=== PATIENT | female | born 1930 | race Caucasian/White ===

== ENCOUNTER 2017-07-28 17:15 | Observation (INO) | payer OTHER ==
[~2017-07-28] VITALS: Ht 162.6 cm; Wt 72.6 kg
[~2017-07-28 17:15] MED LIST: ALPR-411 PO; FLUT0.0529 PO; LANS30CA12 PO; LEVO75TA PO; ZOLP5TAB PO
[2017-07-28] MEDS ORDERED: METOPROLOL TARTRATE 1 MG/ML VIAL IV STA (18:46)
--- NOTE | 2017-07-28 19:32 | DIAGNOSTIC IMAGING REPORT ---
CHEST ONE VIEW PORTABLE HISTORY: 87 years-old Female Evaluate Fever/Sepsis acute fever with sepsis COMPARISON: None available TECHNIQUE: Portable AP view of the chest FINDINGS: Cardiomediastinal and hilar silhouettes are within normal limits. Mild biapical pleural-parenchymal scarring without pneumothorax, pleural effusion, focal airspace consolidation or overt pulmonary edema. Degenerative changes noted within the shoulders and spine. Bones appear mildly demineralized. IMPRESSION: No acute process. The above report was generated using voice recognition software. It may contain grammatical, syntax or spelling errors. Electronically signed by: Flip Ibrahim M.D. 07/28/2017 7:30 PM Dictated Date/Time: 07/28/2017 7:30 PM
[2017-07-28] MEDS ORDERED: ALPPOPS5 OPR (19:36)
[2017-07-28] MEDS ORDERED: CHOL100027 PO (19:36)
[2017-07-28] MEDS ORDERED: MULT1CAP PO (19:36)
[2017-07-28] MEDS ORDERED: TRMCR130WC TOP (19:36)
[2017-07-28] MEDS ORDERED: LATA0.5S OPR (19:36)
[2017-07-28] MEDS ORDERED: BIOT1CAP8 PO (19:36)
[2017-07-28] MEDS ORDERED: FLUT0.15 NAE (19:36)
[2017-07-28] MEDS ORDERED: DOCU-94 PO (19:36)
[2017-07-28 19:55] LABS: BASO % 0.4 %; BASO ABS # 0.03 K/uL (0-0.2); EOS % 1.4 %; EOS ABS # 0.11 K/uL (0-0.5); HEMOGLOBIN 13.4 g/dL (12.0-16.0); IG# 0.02 K/uL (0.00-0.02); LYMPH % 27.2 %; MEAN CELL VOLUME 92.8 fL (80-100); MEAN CORPUSCULAR HEMOGLOBIN 30.3 pg (25-34); MEAN CORPUSCULAR HGB CONC 32.7 g/dl (32-36); MEAN PLATELET VOLUME 8.6 fL (7.4-10.4); MONO % 7.1 %; MONO ABS # 0.55 K/uL (0.11-0.59); NEUT % 63.6 %; PLATELET COUNT 218 K/uL (130-400); RED CELL DISTRIBUTION WIDTH CV 14.1 % (11.5-14.5); RED CELL DISTRIBUTION WIDTH SD 47.9 fL (36.4-46.3); WHITE BLOOD COUNT 7.71 K/uL (4.8-10.8)
[2017-07-28 20:05] LABS: PTT PATIENT 25.4 SECONDS (21.0-31.0)
[2017-07-28 20:13] LABS: ALBUMIN 3.4 gm/dl (3.4-5.0); ALT/SGPT 25 U/L (12-78); AST/SGOT 13 U/L (15-37); BLOOD UREA NITROGEN 23 mg/dl (7-18); CALCIUM 8.9 mg/dl (8.5-10.1); CARBON DIOXIDE 26 mmol/L (21-32); CREATININE 1.13 mg/dl (0.60-1.20); GLUCOSE 95 mg/dl (70-99); LIPASE 265 U/L (73-393); POTASSIUM 3.7 mmol/L (3.5-5.1); SODIUM 141 mmol/L (136-145)
[2017-07-28] MEDS ORDERED: LABETALOL HCL IV 5 MG/ML 20ML IV STA (20:15)
[2017-07-28 20:23] LABS: ALKALINE PHOSPHATASE 80 U/L (45-117); CKMB 1.7 ng/ml (0.5-3.6); TOTAL PROTEIN 7.1 gm/dl (6.4-8.2)
--- NOTE | 2017-07-28 21:44 | EMERGENCY ROOM VISIT NOTE ---
History Report prepared by Lucas: Maddi Sales Under the Supervision of: Dr. Landon Rodriguez D.O. First contact with patient: 18:42 Chief Complaint: REFERRED BY DOCTOR Stated Complaint: SOB, HYPERTENSIVE History of Present Illness The patient is an 87 year old female who presents to the Emergency Room with complaints of persistent SOB starting today. She was sent to the ED by her PCP. The patient has a history of SOB with exertion, but today started feeling SOB at rest. She also notes that her blood pressure has been high today. Her blood pressure has been spiking with exertion for the past year. Her blood pressure goes as high as 225/107 after going up the steps. Her blood pressure usually comes back down with rest. Today it is not coming back down. The patient is not on any medications for hypertension because her pressure is too labile. She has been hearing her heart beat in her ears. She denies any new swelling or pain in her legs. 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 Source of History: patient Onset: today Position: other (global) Quality: other (SOB) Timing: other (persistent) Modifying Factors (Worsening): exertion Note: Pt reports high blood pressure. Pt denies leg pain or swelling. Review of Systems See HPI for pertinent positives & negatives. A total of 10 systems reviewed and were otherwise negative. Past Medical & Surgical Medical Problems: (1) HTN (hypertension) Family History Noncontributory secondary to age. Social History Smoking Status: Never Smoker Marital Status: Housing Status: lives with family Occupation Status: retired Current/Historical Medications Scheduled Biotin (Biotin), 1 MG PO DAILY Brimonidine Tartrate (Alphagan P), 1 DROPS OPR HS Cholecalciferol (Vitamin D 1000 Unit), 1,000 INTER.UNIT PO DAILY Latanoprost (Xalatan 0.005% Oph Rosenda), 1 DROPS OPR HS Levothyroxine Sodium (Synthroid), 75 MCG PO DAILY Multiple Vitamins W/ Minerals (Preservision Areds 2 + Mu), 1 CAP PO DAILY Scheduled PRN Alprazolam (Xanax), 0.25 MG PO HS PRN for ANXEITY Docusate Sodium (Colace), 1 CAP PO BID PRN for Constipation Fluticasone Propionate (Nasal) (Flonase Allergy Relief), 2 SPRAYS LIOR DAILY PRN for Nasal Congestion Triamcinolone Acet (Aristocort 0.1%), 1 APPLN TOP BID PRN for 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) Nitroglycerin (Verified Allergy, Severe, "PASS OUT", 10/06/13) Pneumococcal Vaccines (Verified Allergy, Unknown, UNKNOWN, 07/28/17) Sulfa Antibiotics (Verified Allergy, Unknown, UNKN, 10/06/13) Physical Exam Vital Signs Date Time Temp Pulse Resp B/P (MAP) Pulse Ox O2 Delivery O2 Flow Rate FiO2 07/28/17 21:23 96 16 202/134 98 Room Air 07/28/17 20:33 88 16 185/107 95 Room Air 07/28/17 20:00 74 16 216/121 98 Room Air 07/28/17 19:30 75 16 223/127 96 Room Air 07/28/17 19:29 75 223/127 07/28/17 19:16 97 07/28/17 18:58 98 Room Air 07/28/17 18:38 100 16 245/104 98 Room Air 07/28/17 17:31 36.9 118 20 221/101 97 Room Air Physical Exam CONSTITUTIONAL/VITAL SIGNS: Reviewed / noted above. GENERAL: Non-toxic in appearance. INTEGUMENTARY: Warm, dry, and Tiger. HEAD: Normocephalic. EYES: without scleral icterus or trauma. ENT/OROPHARYNX: clear and moist. LYMPHADENOPATHY/NECK: Is supple without lymphadenopathy or meningismus. RESPIRATORY: Lungs clear and equal. CARDIOVASCULAR: Tachycardic rate and regular rhythm. GI/ABDOMEN: Soft and nontender. No organomegaly or pulsatile mass. No rebound or guarding. Normal bowel sounds. EXTREMITIES: Warm and well perfused. BACK: No CVA tenderness. NEUROLOGICAL: Intact without focal deficits. PSYCHIATRIC: normal affect. MUSCULOSKELETAL: Normally developed with good muscle tone. Medical Decision & Procedures ER Provider Diagnostic Interpretation: X ray results and stated below per my interpretation and radiology interpretation. CHEST ONE VIEW PORTABLE HISTORY: 87 years-old Female Evaluate Fever/Sepsis acute fever with sepsis COMPARISON: None available TECHNIQUE: Portable AP view of the chest FINDINGS: Cardiomediastinal and hilar silhouettes are within normal limits. Mild biapical pleural-parenchymal scarring without pneumothorax, pleural effusion, focal airspace consolidation or overt pulmonary edema. Degenerative changes noted within the shoulders and spine. Bones appear mildly demineralized. IMPRESSION: No acute process. The above report was generated using voice recognition software. It may contain grammatical, syntax or spelling errors. Electronically signed by: Flip Ibrahim M.D. 07/28/2017 7:30 PM Dictated Date/Time: 07/28/2017 7:30 PM Laboratory Results 07/28/17 19:36 Red Blood Count 4.42, Mean Corpuscular Volume 92.8, Mean Corpuscular Hemoglobin 30.3, Mean Corpuscular Hemoglobin Concent 32.7, Mean Platelet Volume 8.6, Neutrophils (%) (Auto) 63.6, Lymphocytes (%) (Auto) 27.2, Monocytes (%) (Auto) 7.1, Eosinophils (%) (Auto) 1.4, Basophils (%) (Auto) 0.4, Neutrophils # (Auto) 4.90, Lymphocytes # (Auto) 2.10, Monocytes # (Auto) 0.55, Eosinophils # (Auto) 0.11, Basophils # (Auto) 0.03 07/28/17 19:36 Test 07/28/17 19:36 07/28/17 19:49 White Blood Count 7.71 K/uL (4.8-10.8) Red Blood Count 4.42 M/uL (4.2-5.4) Hemoglobin 13.4 g/dL (12.0-16.0) Hematocrit 41.0 % (37-47) Mean Corpuscular Volume 92.8 fL (80-100) Mean Corpuscular Hemoglobin 30.3 pg (25-34) Mean Corpuscular Hemoglobin Concent 32.7 g/dl (32-36) Platelet Count 218 K/uL (130-400) Mean Platelet Volume 8.6 fL (7.4-10.4) Neutrophils (%) (Auto) 63.6 % Lymphocytes (%) (Auto) 27.2 % Monocytes (%) (Auto) 7.1 % Eosinophils (%) (Auto) 1.4 % Basophils (%) (Auto) 0.4 % Neutrophils # (Auto) 4.90 K/uL (1.4-6.5) Lymphocytes # (Auto) 2.10 K/uL (1.2-3.4) Monocytes # (Auto) 0.55 K/uL (0.11-0.59) Eosinophils # (Auto) 0.11 K/uL (0-0.5) Basophils # (Auto) 0.03 K/uL (0-0.2) RDW Standard Deviation 47.9 fL (36.4-46.3) RDW Coefficient of Variation 14.1 % (11.5-14.5) Immature Granulocyte % (Auto) 0.3 % Immature Granulocyte # (Auto) 0.02 K/uL (0.00-0.02) Prothrombin Time 10.9 SECONDS (9.0-12.0) Prothromb Time International Ratio 1.0 (0.9-1.1) Activated Partial Thromboplast Time 25.4 SECONDS (21.0-31.0) Partial Thromboplastin Ratio 1.0 Anion Gap 6.0 mmol/L (3-11) Est Creatinine Clear Calc Drug Dose 33.9 ml/min Estimated GFR () 50.3 Estimated GFR (Non- 43.4 BUN/Creatinine Ratio 20.2 (10-20) Calcium Level 8.9 mg/dl (8.5-10.1) Total Bilirubin 0.3 mg/dl (0.2-1) Direct Bilirubin 0.1 mg/dl (0-0.2) Aspartate Amino Transf (AST/SGOT) 13 U/L (15-37) Alanine Aminotransferase (ALT/SGPT) 25 U/L (12-78) Alkaline Phosphatase 80 U/L (45-117) Total Creatine Kinase 99 U/L (26-192) Creatine Kinase MB 1.7 ng/ml (0.5-3.6) Creatine Kinase MB Ratio 1.7 (0-3.0) Troponin I < 0.015 ng/ml (0-0.045) Total Protein 7.1 gm/dl (6.4-8.2) Albumin 3.4 gm/dl (3.4-5.0) Lipase 265 U/L (73-393) Thyroid Stimulating Hormone (TSH) 2.520 uIu/ml (0.300-4.500) Urine Color YELLOW Urine Appearance CLEAR (CLEAR) Urine pH 6.5 (4.5-7.5) Urine Specific [place] 1.008 (1.000-1.030) Urine Protein NEG (NEG) Urine Glucose (UA) NEG (NEG) Urine Ketones NEG (NEG) Urine Occult Blood NEG (NEG) Urine Nitrite NEG (NEG) Urine Bilirubin NEG (NEG) Urine Urobilinogen NEG (NEG) Urine Leukocyte Esterase NEG (NEG) Laboratory results as stated above per my review. Medications Administered Medications (Trade) Dose Ordered Sig/Elisa Route Start Time Stop Time Status Last Admin Dose Admin Metoprolol Tartrate (Lopressor Iv) 5 mg NOW STAT IV 07/28/17 18:46 07/28/17 18:48 DC 07/28/17 19:29 5 MG Labetalol HCl (Normodyne IV) 15 mg NOW STAT IV 07/28/17 20:15 07/28/17 20:17 DC 07/28/17 20:30 15 MG ECG Per My Interpretation Indication: SOB/dyspnea Rate (beats per minute): 103 Rhythm: sinus tachycardia Findings: no ectopy, other (no ST elevation) ED Course 1843: Previous medical records were reviewed. The patient was evaluated in room B6. A complete history and physical examination was performed. 1845: Lopressor Iv 5 mg IV. 2014: Labetalol HCl 15 mg IV. 2031: On reevaluation, the patient is stable. I discussed the results and findings with her. She verbalized agreement of the treatment plan. The patient will be evaluated for further management and care. 2033: I discussed the patient's case with Brianda Parikh PA-C [facility] hospitalist. The patient will be evaluated for further treatment and disposition. Medical Decision the differential was considered includes acute myocardial infarction, acute coronary syndrome, myocarditis, pericarditis, pericardial effusions /tamponad, esophageal perforation, thoracic aortic dissection, pulmonary embolism, pneumonia, pneumothorax, pancreatitis, shingles, acute cholecystitis, perforated abdominal viscus. This is an 87-year-old female who presents to the ED with a chief complaint of shortness of breath and hypertension. The patient reports a history of labile hypertension. She states that her typical blood pressure for her when walking up the steps or exerting herself is 225/107. She states that this is been going on for about a year. Her doctor from [place] has tried numerous blood pressure medications for her but her blood pressure typically "bottoms out". The patient reports shortness of breath with minimal exertion recently as well as shortness of breath at rest. The patient reports taking a cold medication for the past 2-1/2 weeks as well. Her initial blood pressure was 245/145. Her exam reveals a tachycardic rate at the rate of about 115. An EKG shows a sinus tach without acute ischemic changes or ectopy. Patient's exam was otherwise unremarkable. 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 The patient takes thyroid medication. Patient's blood work including CBC, PRP, troponin and TSH were within normal limits. Urine did not show infection. Chest x-ray was negative for acute disease and an EKG showed a sinus tachycardia. The patient was treated with IV Lopressor initially and then IV labetalol. Because of the patient's exertional dyspnea and extreme hypertension, she will be seen by the hospitalist for further inpatient evaluation and care. Medication Reconcilliation Current Medication List: was personally reviewed by me Blood Pressure Screening Patient's blood pressure: Elevated blood pressure Blood pressure disposition: Referred to PCP Consults Time Called: 2030 Consulting Physician: Brianda Parikh PA-C [facility] hospitalist Returned Call: [phone] Discussed the patient's case. The patient will be evaluated for further treatment and disposition. Impression Primary Impression: Hypertensive urgency Scribe Attestation The scribe's documentation has been prepared under my direction and personally reviewed by me in its entirety. I confirm that the note above accurately reflects all work, treatment, procedures, and medical decision making performed by me. Departure Information Dispostion Being Evaluated By Hospitalist Referrals Shyam Francois MD (PCP) Patient Instructions My [facility]
[2017-07-28] MEDS ORDERED: ACETAMINOPHEN 325 MG TAB PO PRN (21:45)
[2017-07-28] MEDS ORDERED: MAGNESIUM HYDROXIDE SUSP 30 ML UDC PO PRN (21:45)
[2017-07-28] MEDS ORDERED: HydrALAZINE HCL 20 MG/ML VIAL IV. STA (21:51)
[2017-07-28] MEDS ORDERED: HydrALAZINE HCL 20 MG/ML VIAL IV. PRN (22:00)
[2017-07-28] MEDS ORDERED: ALPR0.25 PO (22:04)
[2017-07-28] MEDS ORDERED: MAGN200T3 PO (22:04)
[2017-07-28] MEDS ORDERED: BRIM0.15 OPR (22:04)
[2017-07-28] MEDS ORDERED: DOCUSATE SODIUM 100 MG CAP PO PRN (22:15)
[2017-07-28] MEDS ORDERED: IV FLUIDS COMPLETED PRN (22:15)
[2017-07-28] MEDS ORDERED: FLUTICASONE PROPIONATE NA SPR 16 GM BTL NAE PRN (22:15)
[2017-07-28 22:55] VITALS: BP_SYST 199; BP_SYST 209; BP_DIAS 101; BP_DIAS 103; PULSE 105; TEMP 36.5; O2SAT 96; Ht 162.6 cm; Wt 72.6 kg
--- NOTE | 2017-07-28 23:04 | History and Physical ---
History & Physical Date & Time of Service: Jul 28, 2017 at 22:06 Chief Complaint: Sob, Hypertensive Primary Care Physician: Shyam Francois MD History of Present Illness Source: patient, family, clinic records, hospital records Patient is a 87-year-old female with PMH hypertension, hypothyroidism, CKD 3, history of Guillain Ann in 2007, hx TIA in 1998 presented to ER with complaint of hypertension and shortness of breath. History PE after prolonged immobilization from Guillain [place] and history of residual lower extremity weakness and intermittent tremors of arms and legs. Patient reports a history of labile hypertension with history of hypotension & orthostatic hypotension on BP meds in the past. Reports has not been on BP meds for at least 10 years. Patient reports for >1 year has been experiencing exertional shortness of breath after climbing one flight of stairs. Patient states will become short of breath and had the sensation of a lump to the midsternal region. She states she sits and relaxes and symptoms will resolve. She has been taking her blood pressure and the symptoms occurred and reports blood pressure systolic 220s then trends down to 170s down to 140s. Patient reports past week with increased shortness of breath with exertion, now short of breath with walking to the bathroom. Currently patient denies any shortness of breath or chest discomfort. Hx intermittent CP in past, denied further workup. Patient intolerant to nitroglycerin with history of syncope in the past from nitro. Patient states for the past year has been using 5 pillows secondary to orthopnea. Patient reports intermittent or chronic nasal congestion. Several weeks ago was experiencing URI symptoms, seen by PCP on 07/09/17 diagnosed with sinusitis started on cefdinir and prednisone 10 mg 5 days. Patient reports has been taking taking Mucinex DM, last dose yesterday. Cough has resolved, still with some nasal congestion to right nostril. using saline nasal spray once a day and Flonase daily. Patient reports history of lightheadedness and seeing silver spots in vision after standing x years. Denies syncope. Patient reports was told in the past had mild emphysema, has never been on any inhalers for this. Reports history of congestive heart failure during hospitalization for Guillain [place] thought to be secondary from too much IV fluids. Patient denies known CAD. Reports history of cardiac cath approximately 30 years ago which was normal. Reports history of stress test approximately 20 years ago which she reports is normal. History of echo 08/2011, EF: 55-59%, mild mitral regurgitation, moderate tricuspid regurgitation, moderate aortic sclerosis. Patient states has denied stress test in the recent past. Patient reports history of feeling anxious and trouble sleeping at night. Has been taking Xanax at bedtime X1 year. Patient states over the past week or so feeling anxious throughout the day. Denies depression symptoms. Reports history of intermittent swelling of ankles, left greater than right. Patient states has not noticed extremity edema for the past month. Denies any HAGEN, denies falls or head injury. In the ER pulse initially 118 down to 74. BP: 221/101 down to 189/105. Patient was given Lopressor 5 mg IV, labetalol 15 mg IV. Patient denies any chest pain while in ER. Initial troponin negative. Pt daughter: Yuko, phone # [phone] Pt grandson: Michel, phone # [phone] Past Medical/Surgical History Medical Problems: (1) History of transient ischemic attack (TIA) Permanent Comment: 1998 Status: Chronic (2) HTN (hypertension) Status: Chronic (3) Hx of Guillain-[place] syndrome Permanent Comment: 2007- after norovirus, hospitalized x couple weeks, hx trach , peg tube. residual LE weakness Status: Resolved (4) Hypothyroidism Status: Chronic (5) Radius and ulna distal fracture Status: Resolved (6) Radius and ulna distal fracture Status: Resolved (7) Wrist pain, left Status: Resolved Surgical Problems: (1) Hx of cataract removal with insertion of prosthetic lens Status: Resolved (2) Hx of hysterectomy Status: Resolved (3) Hx of shoulder surgery Permanent Comment: 1957 - staph infection L shoulder Status: Resolved (4) Hx of umbilical hernia repair Permanent Comment: 2007 - incarcerated hernia Status: Resolved Family History Hypothyroidism Stroke Social History Smoking Status: Never Smoker Smokeless Tobacco Use: No Alcohol Use: none Drug Use: none Marital Status: Housing status: lives with family Occupational Status: retired 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) Nitroglycerin (Verified Allergy, Severe, "PASS OUT", 10/06/13) Pneumococcal Vaccines (Verified Allergy, Unknown, UNKNOWN, 07/28/17) Sulfa Antibiotics (Verified Allergy, Unknown, UNKN, 10/06/13) Home Medications Scheduled Biotin (Biotin), 1 MG PO DAILY Brimonidine Tartrate Oph (Alphagan P Oph), 1 DROP OPR BID Cholecalciferol (Vitamin D 1000 Unit), 1,000 INTER.UNIT PO DAILY Latanoprost (Xalatan 0.005% Oph Rosenda), 1 DROPS OPR HS Levothyroxine Sodium (Synthroid), 75 MCG PO DAILY Magnesium (Magnesium), 2 TAB PO DAILY Multiple Vitamins W/ Minerals (Preservision Areds 2 + Mu), 1 CAP PO DAILY Scheduled PRN Alprazolam (Xanax), 1 TAB PO HS PRN for Anxiety/Insomnia Docusate Sodium (Colace), 1 CAP PO BID PRN for Constipation Fluticasone Propionate (Nasal) (Flonase Allergy Relief), 2 SPRAYS LIOR DAILY PRN for Nasal Congestion Review of Systems Constitutional: No fever, No chills, No sweats, No weight loss Eyes: No worsening of vision, No eye pain, No redness, No discharge, No diplopia ENT: No unusual epistaxis, No sore throat Respiratory: No wheezing, No dyspnea at rest, No hemoptysis Cardiovascular: + problem reported (see HPI), No palpitations Abdomen: No pain, No nausea, No vomiting, No diarrhea, No constipation, No GI bleeding Musculoskeletal: No joint pain, No muscle pain, No calf pain Genitourinary - Female: + urinary frequency, No dysuria, No urinary urgency, No urinary incontinence, No urinary retention, No hematuria Neurologic: No memory loss, No paralysis, No numbness/tingling Psychiatric: + anxiety (see HPI) Endocrine: No excessive thirst, No excessive urination Hematologic / Lymphatic: No abnormal bleeding/bruising, No swollen lymph nodes , No night sweats Integumentary: No rash, No itch Physical Exam Vital Signs Date Time Temp Pulse Resp B/P (MAP) Pulse Ox O2 Delivery O2 Flow Rate FiO2 07/28/17 21:23 96 16 202/134 98 Room Air 07/28/17 20:33 88 16 185/107 95 Room Air 07/28/17 20:00 74 16 216/121 98 Room Air 07/28/17 19:30 75 16 223/127 96 Room Air 07/28/17 19:29 75 223/127 07/28/17 19:16 97 07/28/17 18:58 98 Room Air 07/28/17 18:38 100 16 245/104 98 Room Air 07/28/17 17:31 36.9 118 20 221/101 97 Room Air General Appearance: WD/WN, no apparent distress Head: normocephalic, atraumatic Eyes: normal inspection, PERRL, EOMI, sclerae normal ENT: hearing grossly normal, pharynx normal, + pertinent finding (mucous membranes moist) Neck: supple, no JVD, trachea midline Respiratory/Chest: chest non-tender, lungs clear, normal breath sounds, no respiratory distress Cardiovascular: regular rate, rhythm, no murmur, normal peripheral pulses Abdomen/GI: normal bowel sounds, non tender, soft Back: no CVA tenderness Extremities/Musculoskelatal: no calf tenderness, normal capillary refill, non- tender, + pertinent finding (strength 2-3/5 bilateral lower extremities. left ankle slight non-pitting edema(pt reports chronic), no erythema.) Neurologic/Psych: alert, normal mood/affect, oriented x 3 Skin: normal color, warm/dry Diagnostics Laboratory Results Results Past 24 Hours Test 07/28/17 19:36 07/28/17 19:49 Range/Units White Blood Count 7.71 4.8-10.8 K/uL Red Blood Count 4.42 4.2-5.4 M/uL Hemoglobin 13.4 12.0-16.0 g/dL Hematocrit 41.0 37-47 % Mean Corpuscular Volume 92.8 80-100 fL Mean Corpuscular Hemoglobin 30.3 25-34 pg Mean Corpuscular Hemoglobin Concent 32.7 32-36 g/dl Platelet Count 218 130-400 K/uL Mean Platelet Volume 8.6 7.4-10.4 fL Neutrophils (%) (Auto) 63.6 % Lymphocytes (%) (Auto) 27.2 % Monocytes (%) (Auto) 7.1 % Eosinophils (%) (Auto) 1.4 % Basophils (%) (Auto) 0.4 % Neutrophils # (Auto) 4.90 1.4-6.5 K/uL Lymphocytes # (Auto) 2.10 1.2-3.4 K/uL Monocytes # (Auto) 0.55 0.11-0.59 K/uL Eosinophils # (Auto) 0.11 0-0.5 K/uL Basophils # (Auto) 0.03 0-0.2 K/uL RDW Standard Deviation 47.9 36.4-46.3 fL RDW Coefficient of Variation 14.1 11.5-14.5 % Immature Granulocyte % (Auto) 0.3 % Immature Granulocyte # (Auto) 0.02 0.00-0.02 K/uL Prothrombin Time 10.9 9.0-12.0 SECONDS Prothromb Time International Ratio 1.0 0.9-1.1 Activated Partial Thromboplast Time 25.4 21.0-31.0 SECONDS Partial Thromboplastin Ratio 1.0 Sodium Level 141 136-145 mmol/L Potassium Level 3.7 3.5-5.1 mmol/L Chloride Level 109 98-107 mmol/L Carbon Dioxide Level 26 21-32 mmol/L Anion Gap 6.0 3-11 mmol/L Blood Urea Nitrogen 23 7-18 mg/dl Creatinine 1.13 0.60-1.20 mg/dl Est Creatinine Clear Calc Drug Dose 33.9 ml/min Estimated GFR () 50.3 Estimated GFR (Non- 43.4 BUN/Creatinine Ratio 20.2 10-20 Random Glucose 95 70-99 mg/dl Calcium Level 8.9 8.5-10.1 mg/dl Magnesium Level 2.4 1.8-2.4 mg/dl Total Bilirubin 0.3 0.2-1 mg/dl Direct Bilirubin 0.1 0-0.2 mg/dl Aspartate Amino Transf (AST/SGOT) 13 15-37 U/L Alanine Aminotransferase (ALT/SGPT) 25 12-78 U/L Alkaline Phosphatase 80 45-117 U/L Total Creatine Kinase 99 26-192 U/L Creatine Kinase MB 1.7 0.5-3.6 ng/ml Creatine Kinase MB Ratio 1.7 0-3.0 Troponin I < 0.015 0-0.045 ng/ml Total Protein 7.1 6.4-8.2 gm/dl Albumin 3.4 3.4-5.0 gm/dl Lipase 265 73-393 U/L Thyroid Stimulating Hormone (TSH) 2.520 0.300-4.500 uIu/ml Urine Color YELLOW Urine Appearance CLEAR CLEAR Urine pH 6.5 4.5-7.5 Urine Specific [place] 1.008 1.000-1.030 Urine Protein NEG NEG Urine Glucose (UA) NEG NEG Urine Ketones NEG NEG Urine Occult Blood NEG NEG Urine Nitrite NEG NEG Urine Bilirubin NEG NEG Urine Urobilinogen NEG NEG Urine Leukocyte Esterase NEG NEG Diagnostic Radiology CXR: IMPRESSION: No acute process. EKG EKG: sinus tachycardia, rate 103, QTc: 458 Impression Assessment and Plan HTN URGENCY Pt reports hx labile HTN. Hasn't been on BP meds for 10 years 2/2 hypotension. Pt noticing SBP 220's after flight of stairs with associated SOB and mid chest lump sensation. In ER BP 221/101 down to 189/105 after lopressor 5mg IV and labetalol 15mg IV. Denies HAGEN. -recent URI hx, hold on further decongestants/expectorants at this time, may continue flonase, saline nasal spray -hydralazine 10mg IV Q6H prn SBP>180 -start low dose lisinopril with pt's hx intolerance to BP meds in past -orthostatics with reported hx orthostatic hypotension -continue to monitor SOB/CHEST DISCOMFORT Pt reports hx SOB with climbing flight of stairs x >1 year with associated mid sternal chest "lump" sensation and noted elevated BP (systolic 220's), resolves with resting. Increased SOB past week with SOB with walking to bathroom. Reports hx orthopnea x 1 year using 5 pillows, denies worsening orthopnea. Hx intermittent LE edema. Initial troponin in ER negative. R/O ACS, CHF -Monitor Vitals -Repeat EKG in am -trend troponin -echo -Cardiology consult -lipid panel in am -magnesium lab added -ASA -Pt intolerant to Nitro ANXIETY Pt reports hx anxiety and insomnia HS, with increased anxiety past week. ?OTC cold medicines worsening anxiety -continue xanax HS prn -continue to monitor CKD III Cr: 1.1, baseline 0.9-1.0 -avoid nephrotoxic agents when possible -monitor renal functions HYPOTHYROIDISM TSH: 2.5 -continue levothyroxine DVT Prophylaxis -heparin SQ Disposition admit tele DNR/DNI as per discussion with pt Follows with Dr Francois for routine care Pt was seen with Dr Lake. See addendum ADDENDUM: I have seen and examined the patient and agree with the note above. Jaya, Resuscitation Status DNR/DNI VTE Prophylaxis Will order VTE Prophylaxis: Yes Additional Copies To Shyam Francois MD
[2017-07-28] MEDS: ALPRAZOLAM 0.25 MG TAB PO PRN (23:16)
[2017-07-28 23:59] VITALS: BP 108/68; PULSE 71
[2017-07-29] VITALS (7 sets, daily range): BP systolic 123–183; BP diastolic 69–83; PULSE 73–90; TEMP 36.6–36.9; O2SAT 92–99
[2017-07-29] MEDS ORDERED: HydrALAZINE HCL 20 MG/ML VIAL IV. PRN (00:45)
[2017-07-29] MEDS: LEVOTHYROXINE 75 MCG TAB PO SCH (05:34)
[2017-07-29 06:45] LABS: HEMATOCRIT 37.9 % (37-47); HEMOGLOBIN 12.4 g/dL (12.0-16.0); MEAN CELL VOLUME 91.1 fL (80-100); MEAN CORPUSCULAR HEMOGLOBIN 29.8 pg (25-34); MEAN CORPUSCULAR HGB CONC 32.7 g/dl (32-36); MEAN PLATELET VOLUME 8.3 fL (7.4-10.4); PLATELET COUNT 219 K/uL (130-400); RED CELL DISTRIBUTION WIDTH CV 14.3 % (11.5-14.5); RED CELL DISTRIBUTION WIDTH SD 47.5 fL (36.4-46.3); WHITE BLOOD COUNT 8.19 K/uL (4.8-10.8)
[2017-07-29 07:14] LABS: CALCIUM 8.8 mg/dl (8.5-10.1); CREATININE 1.13 mg/dl (0.60-1.20)
[2017-07-29] MEDS: BRIMONIDINE TARTRATE-P 0.15% 5 ML BTL OPR SCH ×2 (08:28→21:19)
[2017-07-29] MEDS: CEROVITE ADV FORMULA TAB PO SCH (08:29)
[2017-07-29] MEDS: ASPIRIN 81 MG ECTAB PO SCH (08:29)
[2017-07-29] MEDS: CHOLECALCIFEROL 1000 INTER.UNIT TAB PO SCH (08:29)
[2017-07-29] MEDS: MAGNESIUM OXIDE 400 MG TAB PO SCH (08:29)
[2017-07-29] MEDS: HEPARIN SOD 5000 UNIT/0.5 ML CARP SQ SCH ×2 (08:30→21:00)
[2017-07-29] MEDS ORDERED: LISINOPRIL 5 MG TAB PO SCH (09:00)
--- NOTE | 2017-07-29 11:41 | ECHOCARDIOGRAM REPORT ---
*NOTICE TO RECEIVING [facility] This information is strictly Confidential and protected under [place] law. [place] law prohibits you from making any further disclosure of this information unless further disclosure is expressly permitted by the written consent of the person to whom it pertains or is authorized by law. A general authorization for the release of medical or other information is not sufficient for this purpose. Hospital accepts no responsibility if the information is made available to any other person, INCLUDING THE PATIENT. Interpretation Summary * Name: CAITIE RAHMAN Study Date: 07/29/2017 05:35 AM BP: 145/76 mmHg * Patient Location: C.2T\S\S242\S\2 HR: 85 * : 1930 (M/d/yyyy) Gender: Female Height: 64 in * Age: 87 yrs Ethnicity: [place] Weight: 163 lb * Ordering Physician: Brianda Parikh * Referring Physician: Self, Referred * Performed By: Leslee Ferrari RDCS * * Reason For Study: CHEST PAIN * BSA: 1.8 m2 * The study was technically adequate. * There is no comparison study available. * -- Conclusions -- * Ejection Fraction = 60-65%. * The basal septum is thickened and angulated consistent with sigmoid septum. * Grade I diastolic dysfunction, (abnormal relaxation pattern). * Aortic valve sclerosis mild, without significant aortic valvular stenosis. * There is trace tricuspid regurgitation. * Doppler findings do not suggest pulmonary hypertension. * There is mild concentric left ventricular hypertrophy. Procedure Details * A complete two-dimensional transthoracic echocardiogram was performed (2D, M-mode, Doppler and color flow Doppler). Left Ventricle * The left ventricle is normal in size. * There is no thrombus. * There is mild concentric left ventricular hypertrophy. * The basal septum is thickened and angulated consistent with sigmoid septum. * Ejection Fraction = 60-65%. * Left ventricular systolic function is normal. * No regional wall motion abnormalities noted. Right Ventricle * The right ventricle is normal size. * The right ventricular systolic function is normal as assessed by tricuspid annular plane systolic excursion (TAPSE) (normal >1.5 cm). Atria * The left atrial size is normal. * Right atrial size is normal. * There is no evidence of atrial septal defect, but resolution does not allow assessment for a patent foramen ovale. Mitral Valve * The mitral valve is normal. * There is no mitral valve stenosis. * Significant mitral regurgitation is absent. Tricuspid Valve * The tricuspid valve is normal. * There is no tricuspid stenosis. * There is trace tricuspid regurgitation. * Doppler findings do not suggest pulmonary hypertension. Aortic Valve * The aortic valve is trileaflet. * Aortic valve sclerosis mild, without significant aortic valvular stenosis. * Aortic stenosis is absent. * There is no significant aortic regurgitation. Pulmonic Valve * The pulmonary valve is not well seen, but the Doppler examination is normal without significant regurgitation or stenosis. Great Vessels * The aortic root is normal size. Pericardium/Pleural * There is no pericardial effusion. Great Vessels * Normal inferior vena cava size and collapsability with sniff indicates a normal right atrial pressure of 3 mmHg Left Ventricular Diastolic Function * Grade I diastolic dysfunction, (abnormal relaxation pattern). MMode 2D Measurements and Calculations IVSd 1.3 cm IVSs 1.9 cm LVIDd 3.5 cm LVIDs 2.4 cm LVPWd 1.3 cm LVPWs 2.0 cm IVS/LVPW 0.99 FS 32.6 % EDV(Teich) 51.6 ml ESV(Teich) 19.6 ml EF(Teich) 62.0 % EDV(cubed) 43.7 ml ESV(cubed) 13.4 ml EF(cubed) 69.4 % % IVS thick 43.6 % % LVPW thick 50.4 % LV mass(C)d 154.3 grams LV mass(C)dI 86.1 grams/m\S\2 LV mass(C)s 186.2 grams LV mass(C)sI 103.8 grams/m\S\2 SV(Teich) 32.0 ml SI(Teich) 17.8 ml/m\S\2 SV(cubed) 30.3 ml SI(cubed) 16.9 ml/m\S\2 Ao root diam 3.2 cm Ao root area 7.9 cm\S\2 LA dimension 2.8 cm LA/Ao 0.88 LVAd ap4 25.0 cm\S\2 LVLd ap4 7.7 cm EDV(MOD-sp4) 62.3 ml EDV(sp4-el) 68.7 ml LVAs ap4 14.0 cm\S\2 LVLs ap4 6.1 cm ESV(MOD-sp4) 26.1 ml ESV(sp4-el) 27.1 ml EF(MOD-sp4) 58.1 % EF(sp4-el) 60.5 % LVAd ap2 17.4 cm\S\2 LVLd ap2 7.1 cm EDV(MOD-sp2) 34.5 ml EDV(sp2-el) 36.3 ml LVAs ap2 9.8 cm\S\2 LVLs ap2 6.2 cm ESV(MOD-sp2) 14.2 ml ESV(sp2-el) 13.2 ml EF(MOD-sp2) 58.7 % EF(sp2-el) 63.7 % LVLd %diff -8.81 % EDV(MOD-bp) 49.2 ml LVLs %diff 2.3 % ESV(MOD-bp) 18.3 ml EF(MOD-bp) 62.8 % SV(MOD-sp4) 36.2 ml SI(MOD-sp4) 20.2 ml/m\S\2 SV(MOD-sp2) 20.2 ml SI(MOD-sp2) 11.3 ml/m\S\2 SV(MOD-bp) 30.9 ml SI(MOD-bp) 17.2 ml/m\S\2 SV(sp4-el) 41.6 ml SI(sp4-el) 23.2 ml/m\S\2 SV(sp2-el) 23.1 ml SI(sp2-el) 12.9 ml/m\S\2 Doppler Measurements and Calculations MV E max alyssa 58.8 cm/sec MV A max alyssa 118.1 cm/sec MV E/A 0.50 MV dec time 0.16 sec Ao V2 max 145.5 cm/sec Ao max PG 8.5 mmHg Ao max PG (full) 4.1 mmHg LV V1 max PG 4.4 mmHg LV V1 max 104.6 cm/sec TR max alyssa 244.0 cm/sec
[2017-07-29] MEDS ORDERED: LISINOPRIL 5 MG TAB PO ONE (14:30)
--- NOTE | 2017-07-29 16:05 | Cardiology Consultation ---
Cardiology Consultation Date of Consultation: Jul 29, 2017 Requesting Physician: Ms. Liliane Voss Attending Content Editor: Dr. Mckee (Ana Machuca PA-C) History of Present Illness Patient is a 87 year old female With longstanding history of labile hypertension, not currently on medication therapy due to poor intolerance of blood pressure medications in the past secondary to hypotension. She does not recall what medications she has tried. she denies prior history of cardiovascular disease. She recalls having prior stress tests in the past many years ago which were normal. She had a cardiac catheterization approximately 40 years ago without intervention per her recollection. She was Previously diagnosed with "angina" and prescribed sublingual nitro for chronic chest pain. She does not take nitro on a regular basis due to hypotension. she recalls having angina episodes for many years which is unchanged. Recently patient reports worsening shortness of breath with minimal exertion. She also reports elevated blood pressure readings at home, ranging 180- 220 / 100-120. She notes intermittent headaches. She denies fever cough or chills. She denies sudden weight gain. No lower extremity edema. She notes chronic chest pain described as a lump in her chest. This is unchanged for many years. No current symptoms. She came to the emergency department yesterday with concerns regarding elevated blood pressure readings. She was treated with IV hydralazine which improved her readings. She was started on low-dose lisinopril. This morning her blood pressure appears to Have improved. She continues to note exertional shortness of breath with activities such as ambulation to the bathroom. daughter is at bedside and states the shortness of breath is new for the patient. No headaches or vision changes. No chest pain. No orthopnea, PND , lower extremity edema. 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 (4) Hypothyroidism (5) Radius and ulna distal fracture (6) Radius and ulna distal fracture (7) SOB (shortness of breath) (8) Wrist pain, left Surgical Problems: (1) Hx of cataract removal with insertion of prosthetic lens (2) Hx of hysterectomy (3) Hx of shoulder surgery (4) Hx of umbilical hernia repair (Ana Machuca PA-C) Family History Hypothyroidism Stroke (Ana Machuca PA-C) Hypothyroidism Stroke (Garfield Mckee,Ophelia.OCarey) Social History Smoking Status: Never Smoker Smokeless Tobacco Use: No Alcohol Use: none Drug Use: none Marital Status: Housing Status: lives with family Occupation: retired (Ana Machuca PA-C) Review Of Systems See above for pertinent positives & negatives. A total of 10 systems reviewed and were otherwise negative. 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) Nitroglycerin (Verified Allergy, Severe, "PASS OUT", 10/06/13) Pneumococcal Vaccines (Verified Allergy, Unknown, UNKNOWN, 07/28/17) Sulfa Antibiotics (Verified Allergy, Unknown, UNKN, 10/06/13) Medications Reported Home Medications Medications Dose Route/Sig Max Daily Dose Days Date Category Magnesium 200 Mg Tab 2 Tab PO DAILY 07/28/17 Reported Alphagan P Oph (Brimonidine Tartrate) 0.15 % Rosenda 1 Drop OPR BID 07/28/17 Reported Xanax (Alprazolam) 0.25 Mg Tab 1 Tab PO HS PRN 30 07/28/17 Reported Colace (Docusate Sodium) 100 Mg Cap 1 Cap PO BID PRN 30 07/28/17 Reported Preservision Areds 2 + Mu (Multiple Vitamins W/ Minerals) 1 Cap Cap 1 Cap PO DAILY 07/28/17 Reported Vitamin D 1000 Unit (Cholecalciferol) 1,000 Unit Cap 1,000 Inter.unit PO DAILY 07/28/17 Reported Biotin 1 Mg Cap 1 Mg PO DAILY 07/28/17 Reported Xalatan 0.005% Oph Rosenda (Latanoprost) 0.005 % Rosenda 1 Drops OPR HS 07/28/17 Reported Flonase Allergy Relief (Fluticasone Propionate (Nasal)) 50 Mcg/Act Spr 2 Sprays LIOR DAILY PRN 07/28/17 Reported Synthroid (Levothyroxine Sodium) 75 Mcg Tab 75 Mcg PO DAILY 10/06/13 Reported (Ana Machuca PA-C) Physical Exam Vital Signs (Last 8hrs): Last 8 Hrs Date Time Temp Pulse Resp B/P (MAP) Pulse Ox O2 Delivery O2 Flow Rate FiO2 07/29/17 15:21 Room Air 07/29/17 12:15 183/77 (112) 07/29/17 12:00 Room Air 07/29/17 11:15 36.9 86 18 152/82 (105) 94 Room Air 07/29/17 08:00 Room Air General Appearance: Alert and Oriented x3. NAD. Head: Normocephalic Atraumatic. Eyes: PERRLA, EOMI, conjunctiva and sclera clear Neck: Supple. No carotid bruits noted. No JVD. No HJD. Respiratory: Breath sounds clear to auscultation bilaterally. No w/r/r. Cardiovascular: Reg rate and rhythm. S1 and S2 noted. No murmurs, rubs, gallops. PMI non displace. Abdomen: Normal bowel sounds, soft nontender. no abdominal bruits. Extremities: No edema, no clubbing or cyanosis. distal pulses 2/4 bilaterally. Neuro: No focal deficits. Psychiatric: Normal affect. (Ana Machuca PA-C) Data Last 24 Hours Test 07/28/17 19:36 07/28/17 19:49 07/29/17 00:21 07/29/17 06:24 White Blood Count 7.71 K/uL 8.19 K/uL Red Blood Count 4.42 M/uL 4.16 M/uL Hemoglobin 13.4 g/dL 12.4 g/dL Hematocrit 41.0 % 37.9 % Mean Corpuscular Volume 92.8 fL 91.1 fL Mean Corpuscular Hemoglobin 30.3 pg 29.8 pg Mean Corpuscular Hemoglobin Concent 32.7 g/dl 32.7 g/dl Platelet Count 218 K/uL 219 K/uL Mean Platelet Volume 8.6 fL 8.3 fL Neutrophils (%) (Auto) 63.6 % Lymphocytes (%) (Auto) 27.2 % Monocytes (%) (Auto) 7.1 % Eosinophils (%) (Auto) 1.4 % Basophils (%) (Auto) 0.4 % Neutrophils # (Auto) 4.90 K/uL Lymphocytes # (Auto) 2.10 K/uL Monocytes # (Auto) 0.55 K/uL Eosinophils # (Auto) 0.11 K/uL Basophils # (Auto) 0.03 K/uL RDW Standard Deviation 47.9 fL 47.5 fL RDW Coefficient of Variation 14.1 % 14.3 % Immature Granulocyte % (Auto) 0.3 % Immature Granulocyte # (Auto) 0.02 K/uL Prothrombin Time 10.9 SECONDS Prothromb Time International Ratio 1.0 Activated Partial Thromboplast Time 25.4 SECONDS Partial Thromboplastin Ratio 1.0 Sodium Level 141 mmol/L 141 mmol/L Potassium Level 3.7 mmol/L 4.0 mmol/L Chloride Level 109 mmol/L 109 mmol/L Carbon Dioxide Level 26 mmol/L 24 mmol/L Anion Gap 6.0 mmol/L 9.0 mmol/L Blood Urea Nitrogen 23 mg/dl 24 mg/dl Creatinine 1.13 mg/dl 1.13 mg/dl Est Creatinine Clear Calc Drug Dose 33.9 ml/min 33.4 ml/min Estimated GFR () 50.3 50.3 Estimated GFR (Non- 43.4 43.4 BUN/Creatinine Ratio 20.2 20.8 Random Glucose 95 mg/dl 115 mg/dl Calcium Level 8.9 mg/dl 8.8 mg/dl Magnesium Level 2.4 mg/dl Total Bilirubin 0.3 mg/dl Direct Bilirubin 0.1 mg/dl Aspartate Amino Transf (AST/SGOT) 13 U/L Alanine Aminotransferase (ALT/SGPT) 25 U/L Alkaline Phosphatase 80 U/L Total Creatine Kinase 99 U/L Creatine Kinase MB 1.7 ng/ml Creatine Kinase MB Ratio 1.7 Troponin I < 0.015 ng/ml 0.015 ng/ml 0.024 ng/ml Pro-B-Type Natriuretic Peptide 1132 pg/ml Total Protein 7.1 gm/dl Albumin 3.4 gm/dl Lipase 265 U/L Thyroid Stimulating Hormone (TSH) 2.520 uIu/ml Urine Color YELLOW Urine Appearance CLEAR Urine pH 6.5 Urine Specific [place] 1.008 Urine Protein NEG Urine Glucose (UA) NEG Urine Ketones NEG Urine Occult Blood NEG Urine Nitrite NEG Urine Bilirubin NEG Urine Urobilinogen NEG Urine Leukocyte Esterase NEG Triglycerides Level 109 mg/dl Cholesterol Level 206 mg/dl HDL Cholesterol 60 mg/dl LDL Cholesterol, Calculated 124 mg/dl VLDL Cholesterol, Calculated 22 mg/dl Cholesterol/HDL Ratio 3.4 Imaging: Echocardiogram report pending during time of consult Chest x-ray on admission-no acute process. EKG: On admission- Sinus tachycardia at 103 beats per minute Left ventricular hypertrophy with repolarization abnormality Abnormal ECG No previous ECGs available repeat EKG this morning - Normal sinus rhythm Left ventricular hypertrophy with repolarization abnormality Nonspecific ST abnormality Abnormal ECG When compared with ECG of 28-JUL-2017 17:38, (unconfirmed) T wave inversion now evident in Lateral leads Telemetry reviewed: normal sinus rhythm with occasional PVC. (Ana Machuca PA-C) Assessment & Plan 1. Hypertensive urgency 2. Dyspnea on exertion 3. Chronic chest pain, unchanged for many years PLAN: Agree with low dose lisinopril. Monitor BP. Await echo. Does not appear to be volume overloaded. HTN likely contributing to dyspnea. Negative cardiac enzymes. Discussed with Dr. Mckee. Will follow. (Ana Machuca PA-C) CARDIOLOGY ATTENDING ADDENDUM: The patient was seen and personally examined. Agree with Ana Machuca PA-C's findings and plans as documented above. Subjective: Patient overall feels better from a shortness of breath standpoint. She notes a mild on and off again headache. But overall she is in no acute distress and she is doing a visit with her family. Data: Echocardiogram performed earlier today revealed normal left ventricular wall motion without regional wall motion abnormalities. Left ventricular ejection fraction was normal at 6065%. Mild concentric left ventricular hypertrophy was present. Mild aortic valve sclerosis is noted without aortic valve stenosis. Trace tricuspid regurgitation is present. Doppler findings do not suggest pulmonary hypertension. Impression: Hypertensive urgency, labile hypertension, past intolerance of blood pressure medications Patient does not appear to be volume overloaded. No symptoms or clinical evidence suggestive for acute coronary syndrome. Plan: Agree with plan to start low-dose lisinopril. She does have chronic chest pain which he describes as angina. Future considerations include a trial of isosorbide mononitrate for both blood pressure and medication treatment for presumed underlying coronary artery disease however the patient describes a mild headache today, and so therefore I do not think it is a good day to start this medication which can in turn provoke headaches. (Garfield Mckee,D.O.)
[2017-07-29] MEDS ORDERED: ALPRAZOLAM 0.25 MG TAB PO PRN (16:15)
[2017-07-29] MEDS: ALPRAZOLAM 0.25 MG TAB PO PRN ×2 (16:21→22:32)
--- NOTE | 2017-07-29 18:30 | Progress Note ---
Subjective Date of Service: Jul 29, 2017. Subjective Pt evaluation today including: conversation w/ patient, physical exam, lab review, review of studies, conversation w/ residential sales consultant, review of inpatient medication list Saw/examined the patient in room 242 No problems/issues to note today, states she had some chest pressure earlier, but now resolved does have some dyspnea with exertion mild headache at this time Problem List Medical Problems: (1) Hypertensive urgency Status: Acute Review of Systems Constitutional: No fever, No chills Respiratory: + dyspnea on exertion, No cough, No sputum, No wheezing, No shortness of breath, No dyspnea at rest, No hemoptysis Cardiac: No chest pain, No edema, No palpitations Abdomen: No pain, No nausea, No vomiting, No diarrhea Medications Current Inpatient Medications Medications (Trade) Dose Ordered Sig/Elisa Route Start Time Stop Time Status Last Admin Dose Admin Heparin Sodium (Porcine) (Heparin Sq 5000 Unit/0.5ml) 5,000 unit Q12 SQ 07/29/17 09:00 08/28/17 08:59 07/29/17 08:30 5,000 UNIT Acetaminophen (Tylenol Tab) 650 mg Q4H PRN PO 07/28/17 21:45 08/27/17 21:44 07/29/17 05:34 650 MG Magnesium Hydroxide (Milk Of Magnesia Susp) 30 ml Q12H PRN PO 07/28/17 21:45 08/27/17 21:44 Aspirin (Ecotrin Tab) 81 mg QAM PO 07/29/17 09:00 08/28/17 08:59 07/29/17 08:29 81 MG Alprazolam (Xanax Tab) 0.25 mg HS PRN PO 07/28/17 22:15 08/27/17 22:14 07/29/17 16:21 0.25 MG Brimonidine Tartrate (Alphagan-P 0.15% Oph Soln) 1 drops BID OPR 07/29/17 09:00 08/28/17 08:59 07/29/17 08:28 1 DROPS Cholecalciferol (Vitamin D Tab) 1,000 inter.unit DAILY PO 07/29/17 09:00 08/28/17 08:59 07/29/17 08:29 1,000 INTER.UNIT Docusate Sodium (coLACE CAP) 100 mg BID PRN PO 07/28/17 22:15 08/27/17 22:14 Fluticasone Propionate (Flonase Nasal [place]) 2 sprays DAILY PRN LIOR 07/28/17 22:15 08/27/17 22:14 Latanoprost (Xalatan Oph Soln) 1 drops HS OPR 07/29/17 21:00 08/28/17 20:59 Levothyroxine Sodium (Synthroid Tab) 75 mcg DAILYBB PO 07/29/17 06:00 08/28/17 06:59 07/29/17 05:34 75 MCG Magnesium Oxide (Mag-Ox Tab) 400 mg DAILY PO 07/29/17 09:00 08/28/17 08:59 07/29/17 08:29 400 MG Multivitamins/ Minerals (Multivitamin W/ Minerals Tab) 1 tab QAM PO 07/29/17 09:00 08/28/17 08:59 07/29/17 08:29 1 TAB Miscellaneous (Iv Fluids Completed) 1 ea PRN PRN N/A 07/28/17 22:15 07/28/18 22:14 Hydralazine HCl (HydrALAZINE INJ) 5 mg Q6 PRN IV. 07/29/17 00:45 08/27/17 21:59 Lisinopril (Zestril Tab) 10 mg QAM PO 07/30/17 09:00 08/28/17 08:59 Objective Vital Signs Date Time Temp Pulse Resp B/P (MAP) Pulse Ox O2 Delivery O2 Flow Rate FiO2 07/29/17 15:40 36.9 85 20 161/83 (109) 97 Room Air 07/29/17 15:21 Room Air 07/29/17 12:15 183/77 (112) 07/29/17 12:00 Room Air 07/29/17 11:15 36.9 86 18 152/82 (105) 94 Room Air 07/29/17 08:00 Room Air 07/29/17 07:11 36.9 85 16 145/76 (99) 95 Room Air 07/29/17 04:01 36.6 90 18 143/76 (98) 99 123/74 (90) 07/29/17 04:00 Room Air 07/28/17 23:59 Room Air 07/28/17 23:59 71 20 108/68 (81) Room Air 07/28/17 22:55 36.5 105 18 209/103 96 Room Air 199/101 07/28/17 22:34 94 16 209/89 98 Room Air 07/28/17 22:24 85 16 98 Room Air 07/28/17 21:23 96 16 202/134 98 Room Air 07/28/17 20:33 88 16 185/107 95 Room Air 07/28/17 20:00 74 16 216/121 98 Room Air 07/28/17 19:30 75 16 223/127 96 Room Air 07/28/17 19:29 75 223/127 07/28/17 19:16 97 07/28/17 18:58 98 Room Air 07/28/17 18:38 100 16 245/104 98 Room Air Physical Exam General Appearance: no apparent distress Respiratory/Chest: lungs clear, normal breath sounds, no respiratory distress, no accessory muscle use Cardiovascular: regular rate, rhythm, no edema, no murmur Extremities: normal inspection, no pedal edema, no calf tenderness Neurologic/Psychiatric: no motor/sensory deficits, alert, normal mood/affect Skin: normal color Lymphatic: no adenopathy Laboratory Results Last 24 Hours Test 07/28/17 19:36 07/28/17 19:49 07/29/17 00:21 07/29/17 06:24 White Blood Count 7.71 K/uL 8.19 K/uL Red Blood Count 4.42 M/uL 4.16 M/uL Hemoglobin 13.4 g/dL 12.4 g/dL Hematocrit 41.0 % 37.9 % Mean Corpuscular Volume 92.8 fL 91.1 fL Mean Corpuscular Hemoglobin 30.3 pg 29.8 pg Mean Corpuscular Hemoglobin Concent 32.7 g/dl 32.7 g/dl Platelet Count 218 K/uL 219 K/uL Mean Platelet Volume 8.6 fL 8.3 fL Neutrophils (%) (Auto) 63.6 % Lymphocytes (%) (Auto) 27.2 % Monocytes (%) (Auto) 7.1 % Eosinophils (%) (Auto) 1.4 % Basophils (%) (Auto) 0.4 % Neutrophils # (Auto) 4.90 K/uL Lymphocytes # (Auto) 2.10 K/uL Monocytes # (Auto) 0.55 K/uL Eosinophils # (Auto) 0.11 K/uL Basophils # (Auto) 0.03 K/uL RDW Standard Deviation 47.9 fL 47.5 fL RDW Coefficient of Variation 14.1 % 14.3 % Immature Granulocyte % (Auto) 0.3 % Immature Granulocyte # (Auto) 0.02 K/uL Prothrombin Time 10.9 SECONDS Prothromb Time International Ratio 1.0 Activated Partial Thromboplast Time 25.4 SECONDS Partial Thromboplastin Ratio 1.0 Sodium Level 141 mmol/L 141 mmol/L Potassium Level 3.7 mmol/L 4.0 mmol/L Chloride Level 109 mmol/L 109 mmol/L Carbon Dioxide Level 26 mmol/L 24 mmol/L Anion Gap 6.0 mmol/L 9.0 mmol/L Blood Urea Nitrogen 23 mg/dl 24 mg/dl Creatinine 1.13 mg/dl 1.13 mg/dl Est Creatinine Clear Calc Drug Dose 33.9 ml/min 33.4 ml/min Estimated GFR () 50.3 50.3 Estimated GFR (Non- 43.4 43.4 BUN/Creatinine Ratio 20.2 20.8 Random Glucose 95 mg/dl 115 mg/dl Calcium Level 8.9 mg/dl 8.8 mg/dl Magnesium Level 2.4 mg/dl Total Bilirubin 0.3 mg/dl Direct Bilirubin 0.1 mg/dl Aspartate Amino Transf (AST/SGOT) 13 U/L Alanine Aminotransferase (ALT/SGPT) 25 U/L Alkaline Phosphatase 80 U/L Total Creatine Kinase 99 U/L Creatine Kinase MB 1.7 ng/ml Creatine Kinase MB Ratio 1.7 Troponin I < 0.015 ng/ml 0.015 ng/ml 0.024 ng/ml Pro-B-Type Natriuretic Peptide 1132 pg/ml Total Protein 7.1 gm/dl Albumin 3.4 gm/dl Lipase 265 U/L Thyroid Stimulating Hormone (TSH) 2.520 uIu/ml Urine Color YELLOW Urine Appearance CLEAR Urine pH 6.5 Urine Specific [place] 1.008 Urine Protein NEG Urine Glucose (UA) NEG Urine Ketones NEG Urine Occult Blood NEG Urine Nitrite NEG Urine Bilirubin NEG Urine Urobilinogen NEG Urine Leukocyte Esterase NEG Triglycerides Level 109 mg/dl Cholesterol Level 206 mg/dl HDL Cholesterol 60 mg/dl LDL Cholesterol, Calculated 124 mg/dl VLDL Cholesterol, Calculated 22 mg/dl Cholesterol/HDL Ratio 3.4 Assessment and Plan This is an 87 year old female with a PMH of hypertension, hypothyroidism, CKD 3 , hx. of TIA - presents with labile hypertension, hypertensive urgency Hypertensive Urgency * patient presented with BP of >200/100 * in the past has had hypotensive episodes with blood pressure medications * currently attempting low dose Lisinopril at 10mg and will monitor BP * echo showing mild LV hypertrophy, normal LVEF * cardiac enzymes negative x3, chest pain resolved * appreciate cardiology input Anxiety * will give an extra dose of Xanax 0.25mg in the afternoon * can have one at night for sleep CKD stage 3 * creat at baseline Hypothyroidism * TSH wnl * Synthroid DVT ppx * subq heparin DNR/DNI
[2017-07-29] MEDS ORDERED: LATANOPROST 0.005% OP SOLN 2.5 ML BTL OPR SCH (21:00)
[2017-07-30 04:00] VITALS: BP 131/61; PULSE 93; TEMP 36.5; O2SAT 94
[2017-07-30] MEDS: LEVOTHYROXINE 75 MCG TAB PO SCH (05:53)
[2017-07-30 06:49] LABS: HEMATOCRIT 38.6 % (37-47); MEAN CELL VOLUME 92.3 fL (80-100); MEAN CORPUSCULAR HEMOGLOBIN 28.7 pg (25-34); MEAN CORPUSCULAR HGB CONC 31.1 g/dl (32-36); MEAN PLATELET VOLUME 8.6 fL (7.4-10.4); PLATELET COUNT 225 K/uL (130-400); RED CELL DISTRIBUTION WIDTH CV 14.5 % (11.5-14.5); RED CELL DISTRIBUTION WIDTH SD 49.1 fL (36.4-46.3); WHITE BLOOD COUNT 6.37 K/uL (4.8-10.8)
[2017-07-30 07:25] LABS: CALCIUM 8.5 mg/dl (8.5-10.1); CREATININE 1.29 mg/dl (0.60-1.20); POTASSIUM 3.7 mmol/L (3.5-5.1)
[2017-07-30 07:30] VITALS: BP 140/78; PULSE 61; TEMP 36.8; O2SAT 95
[2017-07-30] MEDS: HEPARIN SOD 5000 UNIT/0.5 ML CARP SQ SCH (08:20)
[2017-07-30] MEDS: BRIMONIDINE TARTRATE-P 0.15% 5 ML BTL OPR SCH (08:21)
[2017-07-30] MEDS: CEROVITE ADV FORMULA TAB PO SCH (08:22)
[2017-07-30] MEDS: CHOLECALCIFEROL 1000 INTER.UNIT TAB PO SCH (08:22)
[2017-07-30] MEDS: MAGNESIUM OXIDE 400 MG TAB PO SCH (08:22)
[2017-07-30] MEDS: ASPIRIN 81 MG ECTAB PO SCH (08:22)
[2017-07-30] MEDS ORDERED: LISINOPRIL 10 MG TAB PO SCH (09:00)
--- NOTE | 2017-07-30 11:09 | Progress Note ---
Subjective Date of Service: Jul 30, 2017. Subjective Pt evaluation today including: conversation w/ patient, physical exam, lab review, review of studies, review of inpatient medication list Saw/examined the patient in room 289 She's doing well, no dizziness, no headaches, no other issues to note Eager to go home. Problem List Medical Problems: (1) Hypertensive urgency Status: Acute Review of Systems Constitutional: No fever, No chills Respiratory: No cough, No sputum, No wheezing, No shortness of breath, No dyspnea on exertion, No dyspnea at rest, No hemoptysis Cardiac: No chest pain, No edema, No palpitations Medications Current Inpatient Medications Medications (Trade) Dose Ordered Sig/Elisa Route Start Time Stop Time Status Last Admin Dose Admin Heparin Sodium (Porcine) (Heparin Sq 5000 Unit/0.5ml) 5,000 unit Q12 SQ 07/29/17 09:00 08/28/17 08:59 07/29/17 08:30 5,000 UNIT Acetaminophen (Tylenol Tab) 650 mg Q4H PRN PO 07/28/17 21:45 08/27/17 21:44 07/29/17 05:34 650 MG Magnesium Hydroxide (Milk Of Magnesia Susp) 30 ml Q12H PRN PO 07/28/17 21:45 08/27/17 21:44 Aspirin (Ecotrin Tab) 81 mg QAM PO 07/29/17 09:00 08/28/17 08:59 07/30/17 08:22 81 MG Alprazolam (Xanax Tab) 0.25 mg HS PRN PO 07/28/17 22:15 08/27/17 22:14 07/29/17 22:32 0.25 MG Brimonidine Tartrate (Alphagan-P 0.15% Oph Soln) 1 drops BID OPR 07/29/17 09:00 08/28/17 08:59 07/30/17 08:21 1 DROPS Cholecalciferol (Vitamin D Tab) 1,000 inter.unit DAILY PO 07/29/17 09:00 08/28/17 08:59 07/30/17 08:22 1,000 INTER.UNIT Docusate Sodium (coLACE CAP) 100 mg BID PRN PO 07/28/17 22:15 08/27/17 22:14 Fluticasone Propionate (Flonase Nasal Rupert) 2 sprays DAILY PRN LIOR 07/28/17 22:15 08/27/17 22:14 Latanoprost (Xalatan Oph Soln) 1 drops HS OPR 07/29/17 21:00 08/28/17 20:59 07/29/17 21:19 1 DROPS Levothyroxine Sodium (Synthroid Tab) 75 mcg DAILYBB PO 07/29/17 06:00 08/28/17 06:59 07/30/17 05:53 75 MCG Magnesium Oxide (Mag-Ox Tab) 400 mg DAILY PO 07/29/17 09:00 08/28/17 08:59 07/30/17 08:22 400 MG Multivitamins/ Minerals (Multivitamin W/ Minerals Tab) 1 tab QAM PO 07/29/17 09:00 08/28/17 08:59 07/30/17 08:22 1 TAB Miscellaneous (Iv Fluids Completed) 1 ea PRN PRN N/A 07/28/17 22:15 07/28/18 22:14 Hydralazine HCl (HydrALAZINE INJ) 5 mg Q6 PRN IV. 07/29/17 00:45 08/27/17 21:59 Lisinopril (Zestril Tab) 10 mg QAM PO 07/30/17 09:00 08/28/17 08:59 07/30/17 08:22 10 MG Objective Vital Signs Date Time Temp Pulse Resp B/P (MAP) Pulse Ox O2 Delivery O2 Flow Rate FiO2 07/30/17 07:45 Room Air 07/30/17 07:30 36.8 61 16 140/78 (98) 95 Room Air 07/30/17 04:00 36.5 93 18 131/61 (84) 94 Room Air 07/30/17 04:00 Room Air 07/30/17 00:00 Room Air 07/29/17 23:49 36.6 90 18 128/69 (88) 95 Room Air 07/29/17 20:27 36.7 73 18 158/83 (108) 92 Room Air 07/29/17 20:00 Room Air 07/29/17 15:40 36.9 85 20 161/83 (109) 97 Room Air 07/29/17 15:21 Room Air 07/29/17 12:15 183/77 (112) 07/29/17 12:00 Room Air 07/29/17 11:15 36.9 86 18 152/82 (105) 94 Room Air Physical Exam General Appearance: no apparent distress Respiratory/Chest: chest non-tender, lungs clear, normal breath sounds, no respiratory distress, no accessory muscle use Cardiovascular: regular rate, rhythm, no edema, no murmur Extremities: normal range of motion, non-tender, normal inspection, no pedal edema, no calf tenderness Neurologic/Psychiatric: no motor/sensory deficits, alert, normal mood/affect Laboratory Results Last 24 Hours Test 07/30/17 06:16 White Blood Count 6.37 K/uL Red Blood Count 4.18 M/uL Hemoglobin 12.0 g/dL Hematocrit 38.6 % Mean Corpuscular Volume 92.3 fL Mean Corpuscular Hemoglobin 28.7 pg Mean Corpuscular Hemoglobin Concent 31.1 g/dl RDW Standard Deviation 49.1 fL RDW Coefficient of Variation 14.5 % Platelet Count 225 K/uL Mean Platelet Volume 8.6 fL Sodium Level 142 mmol/L Potassium Level 3.7 mmol/L Chloride Level 110 mmol/L Carbon Dioxide Level 25 mmol/L Anion Gap 8.0 mmol/L Blood Urea Nitrogen 30 mg/dl Creatinine 1.29 mg/dl Est Creatinine Clear Calc Drug Dose 29.4 ml/min Estimated GFR () 42.8 Estimated GFR (Non- 36.9 BUN/Creatinine Ratio 23.0 Random Glucose 88 mg/dl Calcium Level 8.5 mg/dl Assessment and Plan This is an 87 year old female with a PMH of hypertension, hypothyroidism, CKD 3 , hx. of TIA - presents with labile hypertension, hypertensive urgency Hypertensive Urgency 07/30 * improved blood pressures with Lisinopril 10mg * will continue this as outpatient * BMP in one week to monitor kidney function, electrolytes 07/29 * patient presented with BP of >200/100 * in the past has had hypotensive episodes with blood pressure medications * currently attempting low dose Lisinopril at 10mg and will monitor BP * echo showing mild LV hypertrophy, normal LVEF * cardiac enzymes negative x3, chest pain resolved * appreciate cardiology input Anxiety * will give an extra dose of Xanax 0.25mg in the afternoon * can have one at night for sleep CKD stage 3 * creat at baseline Hypothyroidism * TSH wnl * Synthroid DVT ppx * subq heparin DNR/DNI
[2017-07-30] MEDS ORDERED: LSN10 PO (11:11)
--- NOTE | 2017-07-30 11:13 | Discharge Instructions ---
Discharge Instructions Date of Service Jul 30, 2017. Admission Reason for Admission: Hypertensive Urgency, Sob Discharge Discharge Diagnosis / Problem: Hypertensive Urgency, shortness of breath Discharge Goals Goal(s): Decrease discomfort, Improve function, Diagnostic testing, Therapeutic intervention Activity Recommendations Activity Limitations: resume your previous activity . Instructions / Follow-Up Instructions / Follow-Up Please follow-up with Dr. Francois on August 06 at 10:45AM * You will be started on Lisinopril 10mg for blood pressure * primary care doctor should recheck your blood work (BMP) to check for kidney function and electrolytes Current Hospital Diet Patient's current hospital diet: AHA Diet (Heart Healthy) Discharge Diet Recommended Diet: AHA Diet (Heart Healthy) Pending Studies Studies pending at discharge: no Laboratory Results Lipid Panel Test 07/29/17 06:24 Range/Units Triglycerides Level 109 0-150 mg/dl Cholesterol Level 206 H 0-200 mg/dl HDL Cholesterol 60 mg/dl Cholesterol/HDL Ratio 3.4 LDL Cholesterol, Calculated 124 mg/dl Medical Emergencies . Who to Call and When: Medical Emergencies: If at any time you feel your situation is an emergency, please call 911 immediately. . Non-Emergent Contact Non-Emergency issues call your: Primary Care Provider . . "Provider Documentation" section prepared by Gauri Kovacs. .
[2017-07-30 11:17] VITALS: BP 140/78; PULSE 61; TEMP 36.8; O2SAT 95
--- NOTE | 2017-07-30 11:18 | Discharge Summary ---
Discharge Summary Date of Service Jul 30, 2017. Discharge Summary Admission Date: Jul 28, 2017 at 21:56 Discharge Date: Jul 30, 2017 Discharge Disposition: Home Principal Diagnosis: Hypertensive Urgency Medication Reconciliation New Medications: Lisinopril (Zestril) 10 Mg Tab 10 MG PO QAM for 30 Days, #30 TAB Continued Medications: Alprazolam (Xanax) 0.25 Mg Tab 1 TAB PO HS PRN for Anxiety/Insomnia for 30 Days, TAB Biotin (Biotin) 1 Mg Cap 1 MG PO DAILY Brimonidine Tartrate Oph (Alphagan P Oph) 0.15 % Rosenda 1 DROP OPR BID, BTL Cholecalciferol (Vitamin D 1000 Unit) 1,000 Unit Cap 1000 INTER.UNIT PO DAILY, CAP Docusate Sodium (Colace) 100 Mg Cap 1 CAP PO BID PRN for Constipation for 30 Days, #60 CAP Fluticasone Propionate (Nasal) (Flonase Allergy Relief) 50 Mcg/Act Spr 2 SPRAYS LIOR DAILY PRN for Nasal Congestion Latanoprost (Xalatan 0.005% Oph Rosenda) 0.005 % Rosenda 1 DROPS OPR HS, #2.5 ML 3 Refills Levothyroxine Sodium (Synthroid) 75 Mcg Tab 75 MCG PO DAILY, TAB Magnesium (Magnesium) 200 Mg Tab 2 TAB PO DAILY Multiple Vitamins W/ Minerals (Preservision Areds 2 + Mu) 1 Cap Cap 1 CAP PO DAILY Admission Information HPI (per Admitting provider): Patient is a 87-year-old female with PMH hypertension, hypothyroidism, CKD 3, history of Guillain Ann in 2007, hx TIA in 1998 presented to ER with complaint of hypertension and shortness of breath. History PE after prolonged immobilization from Guillain [place] and history of residual lower extremity weakness and intermittent tremors of arms and legs. Patient reports a history of labile hypertension with history of hypotension & orthostatic hypotension on BP meds in the past. Reports has not been on BP meds for at least 10 years. Patient reports for >1 year has been experiencing exertional shortness of breath after climbing one flight of stairs. Patient states will become short of breath and had the sensation of a lump to the midsternal region. She states she sits and relaxes and symptoms will resolve. She has been taking her blood pressure and the symptoms occurred and reports blood pressure systolic 220s then trends down to 170s down to 140s. Patient reports past week with increased shortness of breath with exertion, now short of breath with walking to the bathroom. Currently patient denies any shortness of breath or chest discomfort. Hx intermittent CP in past, denied further workup. Patient intolerant to nitroglycerin with history of syncope in the past from nitro. Patient states for the past year has been using 5 pillows secondary to orthopnea. Patient reports intermittent or chronic nasal congestion. Several weeks ago was experiencing URI symptoms, seen by PCP on 07/09/17 diagnosed with sinusitis started on cefdinir and prednisone 10 mg 5 days. Patient reports has been taking taking Mucinex DM, last dose yesterday. Cough has resolved, still with some nasal congestion to right nostril. using saline nasal spray once a day and Flonase daily. Patient reports history of lightheadedness and seeing silver spots in vision after standing x years. Denies syncope. Patient reports was told in the past had mild emphysema, has never been on any inhalers for this. Reports history of congestive heart failure during hospitalization for Guillain Geneva thought to be secondary from too much IV fluids. Patient denies known CAD. Reports history of cardiac cath approximately 30 years ago which was normal. Reports history of stress test approximately 20 years ago which she reports is normal. History of echo 08/2011, EF: 55-59%, mild mitral regurgitation, moderate tricuspid regurgitation, moderate aortic sclerosis. Patient states has denied stress test in the recent past. Patient reports history of feeling anxious and trouble sleeping at night. Has been taking Xanax at bedtime X1 year. Patient states over the past week or so feeling anxious throughout the day. Denies depression symptoms. Reports history of intermittent swelling of ankles, left greater than right. Patient states has not noticed extremity edema for the past month. Denies any HAGEN, denies falls or head injury. In the ER pulse initially 118 down to 74. BP: 221/101 down to 189/105. Patient was given Lopressor 5 mg IV, labetalol 15 mg IV. Patient denies any chest pain while in ER. Initial troponin negative. Pt daughter: Yuko, phone # [phone] Pt grandson: Michel, phone # [phone] Physical Exam (per Admitting): General Appearance: WD/WN, no apparent distress Head: normocephalic, atraumatic Eyes: normal inspection, PERRL, EOMI, sclerae normal ENT: hearing grossly normal, pharynx normal, + pertinent finding (mucous membranes moist) Neck: supple, no JVD, trachea midline Respiratory/Chest: chest non-tender, lungs clear, normal breath sounds, no respiratory distress Cardiovascular: regular rate, rhythm, no murmur, normal peripheral pulses Abdomen/GI: normal bowel sounds, non tender, soft Back: no CVA tenderness Extremities/Musculoskelatal: no calf tenderness, normal capillary refill, non-tender, + pertinent finding (strength 2-3/5 bilateral lower extremities. left ankle slight non-pitting edema(pt reports chronic), no erythema.) Neurologic/Psych: alert, normal mood/affect, oriented x 3 Skin: normal color, warm/dry Hospital Course This is an 87 year old female with a PMH of hypertension, hypothyroidism, CKD 3 , hx. of TIA - presents with labile hypertension, hypertensive urgency Hypertensive Urgency 07/30 * improved blood pressures with Lisinopril 10mg * will continue this as outpatient * BMP in one week to monitor kidney function, electrolytes 07/29 * patient presented with BP of >200/100 * in the past has had hypotensive episodes with blood pressure medications * currently attempting low dose Lisinopril at 10mg and will monitor BP * echo showing mild LV hypertrophy, normal LVEF * cardiac enzymes negative x3, chest pain resolved * appreciate cardiology input Anxiety * will give an extra dose of Xanax 0.25mg in the afternoon * can have one at night for sleep CKD stage 3 * creat at baseline Hypothyroidism * TSH wnl * Synthroid DVT ppx * subq heparin DNR/DNI Total time spent on discharge = 25 minutes This includes examination of the patient, discharge planning, medication reconciliation, and communication with other providers. Discharge Instructions Please follow-up with Dr. Francois on August 06 at 10:45AM * You will be started on Lisinopril 10mg for blood pressure * primary care doctor should recheck your blood work (BMP) to check for kidney function and electrolytes
--- NOTE | 2017-07-30 17:11 | Cardiology Follow-Up ---
Subjective General Date of Service: Jul 30, 2017. Chief Complaint: HTN History of Present Illness Late entry - Patient evaluated AM of 07/30/17 prior to discharge. Discussed with hospitalist. Patient feeling well this AM. BP improved. No recurrent chest pain. Dyspnea improved with ambulation in room. She was anxious for discharge. 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) Nitroglycerin (Verified Allergy, Severe, "PASS OUT", 10/06/13) Pneumococcal Vaccines (Verified Allergy, Unknown, UNKNOWN, 07/28/17) Sulfa Antibiotics (Verified Allergy, Unknown, UNKN, 10/06/13) Social History Smoking Status: Never Smoker Hx Tobacco Use In Past Year?: No Hx Alcohol Use - Type And Amou: No Hx Substance Use - Type And Am: No Problem List Medical Problems: (1) Hypertensive urgency Status: Acute Review of Systems Respiratory: No cough, No sputum, No wheezing, No shortness of breath, No dyspnea at rest, No hemoptysis Cardiac: No chest pain, No orthopnea, No PND, No edema, No palpitations Physical Exam Vital Signs Last Vital Signs Documentation Date Time Temp Pulse Resp B/P (MAP) Pulse Ox O2 Delivery O2 Flow Rate FiO2 07/30/17 11:17 36.8 61 16 95 Room Air 07/30/17 07:30 140/78 (98) Physical Exam Constitutional: General Apperance: heathly-appearing Level of Distress: NAD Ambulation: ambulating normally Psychiatric: Mental Status: active & alert Orientation: to time, to place, to person Head: normocephalic Eyes: Pupils: PERRLA Lungs: Auscultation: breath sounds normal, no wheezing, no rales/crackles Cardiovascular: Heart Auscultation: RRR, normal S1, normal S2, no murmurs Extremities: no edema Assessment and Plan Assessment and Plan 1. Hypertensive urgency - BP improved with lisinopril 2. Dyspnea - Improved with titration of BP medications. Echo revealed normal LV funciton, no pulm hypertension, no significant valvular disease. Does not examine as volume overloaded 3. Chronic chest pain, unchanged for many years PLAN: HTN likely contributing to dyspnea. Negative cardiac enzymes. No CHF symptoms. BP improved with lisinopril. Recommend discharge on lisinopril 10 mg daily. BMP in 2 weeks and f/u with PCP. Future consideration for nitrates for BP control to aid with "angina", however patient notes headaches, which may be a deterrent. Case discussed with Dr. Mckee. Stable for discharge today. Discussed with hospitalist. CARDIOLOGY ATTENDING ADDENDUM: Case discussed with MONE High. Unfortunately, the patient was discharged prior to when I had the opportunity to examine her. Agree with Ana Machuca PA-C's findings and plans as documented above. Laboratory Results Last 24 Hours Test 07/30/17 06:16 White Blood Count 6.37 K/uL Red Blood Count 4.18 M/uL Hemoglobin 12.0 g/dL Hematocrit 38.6 % Mean Corpuscular Volume 92.3 fL Mean Corpuscular Hemoglobin 28.7 pg Mean Corpuscular Hemoglobin Concent 31.1 g/dl RDW Standard Deviation 49.1 fL RDW Coefficient of Variation 14.5 % Platelet Count 225 K/uL Mean Platelet Volume 8.6 fL Sodium Level 142 mmol/L Potassium Level 3.7 mmol/L Chloride Level 110 mmol/L Carbon Dioxide Level 25 mmol/L Anion Gap 8.0 mmol/L Blood Urea Nitrogen 30 mg/dl Creatinine 1.29 mg/dl Est Creatinine Clear Calc Drug Dose 29.4 ml/min Estimated GFR () 42.8 Estimated GFR (Non- 36.9 BUN/Creatinine Ratio 23.0 Random Glucose 88 mg/dl Calcium Level 8.5 mg/dl
== END 2017-07-30 13:57 | disposition home or self-care (01) ==
LOC: C.EDB 17:16 → C.2T 21:56 → ENRESERV 22:13 → C.MED 07-29 19:14
PROVIDERS: ADMIT Hospitalist; ATTEND Family Medicine
DX: I12.9 Hypertensive chronic kidney disease with stage 1 through stage 4 chronic kidney disease, or unspecified chronic kidney disease (principal); E03.9 Hypothyroidism, unspecified; N18.3 Chronic kidney disease, stage 3 (moderate); F41.9 Anxiety disorder, unspecified; Z86.711 Personal history of pulmonary embolism; Z86.73 Personal history of transient ischemic attack (TIA), and cerebral infarction without residual deficits; Z88.5 Allergy status to narcotic agent; Z88.8 Allergy status to other drugs, medicaments and biological substances; Z88.2 Allergy status to sulfonamides; Z79.899 Other long term (current) drug therapy; Z66 Do not resuscitate; Z79.82 Long term (current) use of aspirin